=== PATIENT | female | born 1970 | race African-American/Black ===

== ENCOUNTER 2018-10-11 07:26 | Day surgery (SDC) | payer BC ==
[2018-10-10 10:03] VITALS: BMI 25.0
[2018-10-11] MEDS ORDERED: LIDOCAINE 1%-EPI 1:100,000 30 ML MDV IJ ONE (08:46)
[2018-10-11] MEDS ORDERED: BUPIVACAINE HCL/PF 0.5% (5MG/ML) 10 ML VIAL ONE (08:46)
[2018-10-11] MEDS ORDERED: BUPIVACAINE HCL/PF (5 MG/ML) 30 ML VIAL IJ ONE (08:56)
[2018-10-11] MEDS ORDERED: LIDOCAINE 1%/EPI 1:100000 (50 ML MULTI DOSE VIAL) NR ONE (08:56)
[2018-10-11 09:29] VITALS: TEMP 97.6
[2018-10-11 10:30] VITALS: BP 120/74; PULSE 78
--- NOTE | 2018-10-11 16:46 | OP ---
DATE OF OPERATION: 10/11/2018 SURGICAL ATTENDING: Brie Sesay MD PREOPERATIVE DIAGNOSIS: Left posterior thigh nodule. POSTOPERATIVE DIAGNOSIS: Left posterior thigh nodule. ANESTHESIA: Local. DESCRIPTION OF PROCEDURE: The patient was taken into the operating room, placed in the right lateral decubitus position. All pressure points were checked and protected. The left posterior thigh was then prepped and draped in the usual sterile fashion. Local anesthesia was administered. A 3-cm elliptical incision was made around the left posterior upper thigh nodule and carried down through subcutaneous tissues. The skin and nodule were in this way removed and sent to Pathology. Hemostasis was achieved with electrocautery. The wound was then closed in 2 layers. Dermabond was placed. The patient was then awakened and taken to recovery in stable condition. Dr. Sesay, the attending surgeon, was present throughout the entire procedure. BRIE SESAY M.D. [id number]
--- NOTE | 2018-10-15 20:16 | PATH ---
Surgical Pathology Report Patient Name: ANTONIETTA HUDSON [facility]. Rec. #: [id number] /Age/Gender: 1970 (Age: 48) / F Account: [id number] Location: [facility] SURGICAL Taken: 10/11/2018 Received: 10/11/2018 Reported: 10/15/2018 Physicians: Bunny Collins M.D. Specimen(s) Received POSTERIOR LEFT THIGH NODULE Clinical History Posterior thigh nodule Final Diagnosis POSTERIOR THIGH NODULE, LEFT, EXCISION: INTRADERMAL MATURE ADIPOSE TISSUE CONSISTENT WITH LIPOMA. Electronically Signed Kimberly Castellano M.D. Gross Description Received in formalin labeled "posterior thigh nodule," is a 2.7 x 1.7 cm slater-brown, elliptical, unoriented portion of skin excised to depth of 1.0 cm. There is a bulging subepidermal nodule present. The epidermal surface is brown and unremarkable. Sectioning reveals homogeneous yellow, lobulated adipose tissue. Draughtsman sections are submitted in 2 cassettes. /10/14/2018 saudi/10/14/2018
== END 2018-10-11 10:10 | disposition home or self-care (01) ==
LOC: JASU-SURG 07:26
PROVIDERS: ATTEND Surgery
PROC: 0JBM0ZZ Excision of Left Upper Leg Subcutaneous Tissue and Fascia, Open Approach (ICD-10-PCS; principal; 2018-10-11 08:30)
DX: D17.24 Benign lipomatous neoplasm of skin and subcutaneous tissue of left leg (principal)
CPT/HCPCS: 84703; 88304-TC

== ENCOUNTER 2021-02-27 07:35 | Emergency (ER) | payer BC, OTHER ==
[2021-02-27] MEDS ORDERED: DEXAMETHASONE SOD PHOSPHATE 10 MG/1 ML VIAL ONE (07:48)
[2021-02-27] MEDS ORDERED: EPINEPHrine/PF 1 MG/1 ML (1:1,000) AMPULE ONE (07:48)
[2021-02-27] MEDS ORDERED: EPINEPHrine/PF 1 MG/1 ML (1:1,000) AMPULE IM ONE (07:50)
[2021-02-27] MEDS ORDERED: DEXAMETHASONE SOD PHOSPHATE 10 MG/1 ML VIAL IM ONE (07:50)
[2021-02-27] MEDS ORDERED: DEXAMETHASONE SOD PHOSPHATE 10 MG/1 ML VIAL IVPUSH ONE (07:51)
[2021-02-27] MEDS ORDERED: FAMOTIDINE 20 MG/50 ML IVPB 20 MG/50 ML MG IVPB ONE ×2 (07:51→08:18)
[2021-02-27 07:59] VITALS: BP 147/90; PULSE 98; TEMP 97; BMI 25.8
[2021-02-27] MEDS ORDERED: EPINEPHrine 1:1,000 1 MG/1 ML - 30ML VIAL (INJECTION) SQ ONE (08:00)
== END 2021-02-27 11:40 | disposition home or self-care (01) ==
LOC: JER 07:35
PROC: 3E033NZ Introduction of Analgesics, Hypnotics, Sedatives into Peripheral Vein, Percutaneous Approach (ICD-10-PCS; principal; 2021-02-27)
PROC: 3E033GC Introduction of Other Therapeutic Substance into Peripheral Vein, Percutaneous Approach (ICD-10-PCS; 2021-02-27)
PROC: 3E033GC Introduction of Other Therapeutic Substance into Peripheral Vein, Percutaneous Approach (ICD-10-PCS; 2021-02-27)
PROC: 3E023NZ Introduction of Analgesics, Hypnotics, Sedatives into Muscle, Percutaneous Approach (ICD-10-PCS; 2021-02-27)
DX: T78.40XA Allergy, unspecified, initial encounter (principal); K14.8 Other diseases of tongue
CPT/HCPCS: 99284-25; J1100

== ENCOUNTER 2022-07-06 08:35 | Emergency (ER) | payer OTHER ==
[2022-07-06 08:57] VITALS: BMI 26.6
[2022-07-06] MEDS ORDERED: ASPIRIN 81 MG CHEWABLE TABLETS PO ONE (09:49)
[2022-07-06] MEDS ORDERED: ASPIRIN 81 MG CHEWABLE TABLETS ONE (10:06)
[2022-07-06 10:41] LABS: BASO % 0.7 % (0-2.0); EOS % 1.2 % (0-4.5); HEMATOCRIT 34.3 % (32.4-45.2); HEMOGLOBIN 11.3 GM/dL (10.7-15.3); MCH 23.2 pg (25.7-33.7); MCHC 32.9 g/dl (32.0-36.0); MEAN CELL VOLUME 70.4 fl (80-96); MEAN PLT VOLUME 8.1 fl (7.5-11.1); MONO % 8.6 % (3.8-10.2); NEUT % 61.5 % (42.8-82.8); PLATELET COUNT 409 10^3/uL (134-434); RBC 4.88 M/mm3 (3.60-5.2); RDW 14.8 % (11.6-15.6); WHITE BLOOD COUNT 5.2 K/mm3 (4.0-10.0)
[2022-07-06 10:53] LABS: INR 1.21 (0.83-1.09)
[2022-07-06 10:56] LABS: ACTIVATED PTT 32.3 SECONDS (25.2-36.5)
[2022-07-06 11:09] LABS: CALCIUM 9.5 mg/dL (8.5-10.1)
[2022-07-06 11:10] LABS: BLOOD UREA NITROGEN 14.3 mg/dL (7-18)
[2022-07-06 11:13] LABS: CREATININE 0.7 mg/dL (0.55-1.3)
[2022-07-06 11:14] LABS: TOT PROT 7.2 g/dl (6.4-8.2)
[2022-07-06 11:15] LABS: BILIRUBIN,TOTAL 0.4 mg/dL (0.2-1)
[2022-07-06] MEDS ORDERED: SODIUM CHLORIDE 0.9% 1000 ML INFUS.BAG IV ONE (13:02)
[2022-07-06] MEDS ORDERED: MAG HYDROX/AL HYDROX/SIMETH 30 ML UNIT-DOSE CUP PO ONE (13:12)
[2022-07-06] MEDS ORDERED: FAMOTIDINE 20 MG TABLET PO ONE (13:12)
[2022-07-06] MEDS ORDERED: FAMOTIDINE 20 MG TABLET ONE (13:26)
[2022-07-06] MEDS ORDERED: MAG HYDROX/AL HYDROX/SIMETH 30 ML UNIT-DOSE CUP ONE (13:26)
[2022-07-06 14:58] VITALS: BP 124/80; PULSE 73; RESP 20; TEMP 98
== END 2022-07-06 14:59 | disposition home or self-care (01) ==
LOC: JER 08:35
DX: R07.89 Other chest pain (principal); Z20.822 Contact with and (suspected) exposure to COVID-19
CPT/HCPCS: 0241U-QW; 36415; 71046-TC-FY; 71275-TC; 74174-TC; 80053; 84484; 85025; 85610; 85730; 93005; 93010; 99285-25; Q9967